=== PATIENT | female | born 1995 ===

== ENCOUNTER → 2023-10-23 14:56 | Outpatient (CLI) | payer OTHER, SELFPAY ==
--- NOTE | 2023-10-23 14:56 | DI.US.S_ITS ---
PROCEDURE: US OB <= 14 WEEKS FETUS INDICATIONS: dating and viability OUTSIDE/PRIOR DATING DATA: Last menstrual period (LMP): 08/09/2023. LMP-based estimated date of delivery (BRITNI): 05/15/2024. First dating scan (date and location): 10/23/2023. Estimated date of delivery (BRITNI) from first dating scan: 05/31/2024. TECHNIQUE: Real-time scanning was performed of the fetus and maternal pelvic organs, with image documentation. Endovaginal scanning was also performed to better visualize the fetus and maternal ovaries. COMPARISON: None. FINDINGS: Embryo: [place]-rump length 1.9 cm corresponds with a 8 week 3 day gestation Heart rate: 171 beats per minute Perigestational bleed measures 2.0 x 0.8 x 1.2 cm Maternal organs: Left ovarian cyst 2.9 x 3.5 x 2.7 cm IMPRESSION: Single live intrauterine consistent with 8 week 3 day gestation. Perigestational bleed measures 2.0 by 0.8 cm Approved by: Delgado Green M.D. on 10/23/2023 at 19:20
== END ==
PROVIDERS: Referring Provider Family Medicine; Visit Provider Family Medicine
DX: Z3A.08 8 weeks gestation of pregnancy (principal); O46.8X1 Other antepartum hemorrhage, first trimester
CPT/HCPCS: 76801

== ENCOUNTER → 2023-11-06 16:22 | Outpatient (CLI) | payer OTHER, SELFPAY ==
[2023-11-06 17:24] LABS: Add Manual Diff / Slide Review NO; Basophils Absolute Auto 100 /uL (0-100); Basophils Percent Auto 0.6 % (0-2); Eosinophils Absolute Auto 900 /uL (0-450); Eosinophils Percent Auto 8.3 % (2-4); Hematocrit 38.7 % (36-46); Lymphocytes Absolute Auto 2000 /uL (1100-4500); Lymphocytes Percent Auto 18.6 % (25-40); Mean Corpuscular HGB Conc 33.7 % (30-36); Mean Corpuscular Volume 92.1 fL (80-100); Monocytes Absolute Auto 700 /uL (0-900); Monocytes Percent Auto 6.6 % (3-14); Neutrophils Absolute Auto 6900 /uL (1500-7000); Neutrophils Percent Auto 65.9 % (50-75); Platelet Count 293 X10^3/uL (150-400); Red Blood Cell Count 4.21 X10^6/uL (4.0-5.2); Red Cell Distribution Width 13.1 % (11.6-14.8); White Blood Cell Count 10.5 X10^3/uL (4.5-11.0)
[2023-11-06 17:29] LABS: Appearance Urine UA CLEAR; Bilirubin Urine UA NEGATIVE (NEGATIVE); Color Urine UA YELLOW; Glucose Urine UA NEGATIVE (Negative); Ketones Urine UA NEGATIVE (NEGATIVE); Leukocyte Esterase Urine UA NEGATIVE (NEGATIVE); Nitrite Urine UA NEGATIVE (Negative); Occult Blood Urine UA NEGATIVE (Negative); Protein Urine UA NEGATIVE (Negative); Urobilinogen Urine UA 0.2 E.U./dL (0.2)
[2023-11-06 17:34] LABS: pH Urine UA 6.5 (4.5-8.0)
[2023-11-06 19:22] LABS: Hepatitis B Surface Antigen NEGATIVE s/c (NEGATIVE); Rubella Antibody IgG 3.9 IU/mL (>15)
[2023-11-06 19:42] LABS: HIV 1 & 2 Ab/Ag 4th Gen Combo NEGATIVE (NEGATIVE); Hep C Virus Ab w/Reflex Quant NEGATIVE s/c (NEGATIVE)
== END ==
PROVIDERS: PCP Family Medicine; Referring Provider Family Medicine; Visit Provider Family Medicine
DX: Z34.80 Encounter for supervision of other normal pregnancy, unspecified trimester (principal)
CPT/HCPCS: 36415; 80055; 81003; 86787; 86803; 86850; 86900; 86901; 87086; 87389

== ENCOUNTER → 2024-01-15 15:06 | Outpatient (CLI) | payer OTHER, SELFPAY ==
--- NOTE | 2024-01-15 15:07 | DI.US.S_ITS ---
PROCEDURE: US OB >= 14 WEEKS FETUS INDICATIONS: anatomy US OUTSIDE/PRIOR DATING DATA: Last menstrual period (LMP): 08/09/2023. LMP-based estimated date of delivery (BRITNI): 05/15/2024. First dating scan (date and location): 10/23/2023. Estimated date of delivery (BRITNI) from first dating scan: 05/31/2024. The calculations are made using the BRITNI of 05/28/2024. TECHNIQUE: Real-time scanning was performed of the fetus, with image documentation and biometric measurements. Endovaginal scanning: Not performed COMPARISON: [facility], OB <= 14 WEEKS FETUS, 10/23/2023, 15:27. FINDINGS: General: A single living intrauterine gestation is present. Presentation: Vertex. Placenta: Placental position is anterior , without previa. Amniotic fluid index: 13.3 cm, normal range is 5-24 cm. Single deepest vertical pocket is 4.4 cm. heart rate: 140 beats per minute. Maternal cervical canal: 3.3 cm long. Normal lower limit is 2.5 cm. biometrics: Biparietal diameter: 4.8 centimeters, 20 weeks 4 days Head circumference: 18.0 centimeters, 20 weeks 3 days Abdominal circumference: 16.4 centimeters, 21 weeks 3 days Femur length: 3.5 centimeters, 21 weeks 0 days Clinically estimated gestational age: 20 weeks 3 days Composite gestational age from present scan: 20 weeks 6 days Estimated weight and percentile: 404 grams, 84 percent Anatomic survey: Neuro: Ventricles are non-dilated at less than 10 mm. Cisterna magna is normal at 3-11 mm. Cerebellum is normal in size and morphology. Nuchal skin fold: Normal at less than 6 mm between 14-21 weeks gestational age. Face: Nose and lips, facial profile are normal. Spine: No evidence for spina bifida. Heart: Not well seen. Diaphragm: Diaphragm is intact. Stomach: Left-sided stomach is present. Kidneys: No hydronephrosis. Normal is less than 5 mm in 2nd trimester, less than 7 mm in 3rd trimester. Cord: 3-vessel cord has orthotopic insertion. Bladder: Normal in size. Extremities: All 4 extremities identified. IMPRESSION: 1. Single live intrauterine consistent with 20 weeks and 6 days. 2. The heart and outflow tracts are not well seen secondary to positioning. Recommend short-term follow-up exam. 3. Otherwise, normal anatomic survey. We strive to produce accurate, complete, and clear reports of imaging services. To assist us in improving patient care, this report was composed using standard report templates and voice recognition software. Therefore, it may contain abnormal punctuation, insertions and/or omissions. Occasional wrong-word or sound-alike substitutions may occur. Though we review the report and make efforts to correct it, we do recommend that the report be read carefully in proper context to recognize any text inaccuracies. Dictated by: Rl Ramirez M.D. on 01/16/2024 at 10:02 Approved by: Rl Ramirez M.D. on 01/16/2024 at 10:05
== END ==
PROVIDERS: Referring Provider Family Medicine; Visit Provider Family Medicine
DX: Z34.82 Encounter for supervision of other normal pregnancy, second trimester (principal); Z3A.20 20 weeks gestation of pregnancy
CPT/HCPCS: 76811

== ENCOUNTER → 2024-01-22 07:37 | Outpatient (CLI) | payer OTHER, SELFPAY ==
--- NOTE | 2024-01-22 07:37 | DI.US.S_ITS ---
PROCEDURE: US OB LIMITED INDICATIONS: visualization of the heart and outflow tracts OUTSIDE/PRIOR DATING DATA: Last menstrual period (LMP): 08/09/2023 LMP-based estimated date of delivery (BRITNI): 05/15/2024 First dating scan (date and location): 10/23/2023 Estimated date of delivery (BRITNI) from first dating scan: 05/31/2024 The calculations are made using the working BRITNI of 05/28/2024 TECHNIQUE: Real-time scanning was performed of the fetus, with image documentation and biometric measurements. Endovaginal scanning: Not performed COMPARISON: [facility], OB >= 14 WEEKS FETUS, 01/15/2024, 16:06. FINDINGS: General: A single living intrauterine gestation is present. Presentation: Transverse with head towards maternal right side Placenta: Placental position is anterior, without previa. Amniotic fluid index: 15.2 cm, normal range is 5-24 cm. Single deepest vertical pocket is 4.3 cm. heart rate: 136 beats per minute. Maternal cervical canal: Closed and measures 3.7 cm long. Normal lower limit is 2.5 cm. Clinically estimated gestational age: 21 weeks, 3 days Miscellaneous: Four-chamber heart and ventricular outflow tracts are visualized on the current study and is within normal limits. facial profile is visualized and is within normal limits. IMPRESSION: 1. Single live intrauterine gestation with fetus in transverse presentation. heart rate is 136 beats per minute. Normal ROX at 15.2 cm. Cervix is closed and measures 3.7 cm in length. 2. facial profile, four-chamber heart and ventricular outflow tracts are visualized on the current study and are within normal limits. We strive to produce accurate, complete, and clear reports of imaging services. To assist us in improving patient care, this report was composed using standard report templates and voice recognition software. Therefore, it may contain abnormal punctuation, insertions and/or omissions. Occasional wrong-word or sound-alike substitutions may occur. Though we review the report and make efforts to correct it, we do recommend that the report be read carefully in proper context to recognize any text inaccuracies. Dictated by: Srinath Miller M.D. on 01/22/2024 at 12:25 Approved by: Srinath Miller M.D. on 01/22/2024 at 12:28
== END ==
PROVIDERS: Referring Provider Family Medicine; Visit Provider Family Medicine
DX: Z34.82 Encounter for supervision of other normal pregnancy, second trimester (principal); Z3A.21 21 weeks gestation of pregnancy
CPT/HCPCS: 76815